=== PATIENT | male | born 1970 | race Caucasian/White ===

== ENCOUNTER 2017-11-12 06:36 | Emergency (ER) | payer BC ==
[2017-11-12 06:51] VITALS: BP 131/88
[2017-11-12] MEDS ORDERED: Ketorolac 60 MG/2 ML SDV IM ONE (07:20)
--- NOTE | 2017-11-12 07:25 | EDM.PDOC ---
ED HPI GENERAL MEDICAL PROBLEM - General Chief Complaint: Upper Extremity Injury/Pain Stated Complaint: EXCRUICIATING PAIN IN RIGHT SHOULDER Time Seen by Provider: 11/12/17 07:13 - History of Present Illness INITIAL COMMENTS - FREE TEXT/NARRATIVE: HISTORY AND PHYSICAL: History of present illness: The patient is a 47-year-old male who presents with complaints to his right arm that started about 4 AM and there is pain with movement and engagement of the arm. The patient says for the last one month he has had migrating discomfort sometimes in his left shoulder sometimes in his right shoulder sometimes in his knee and now it's in his right upper extremity. The patient works in the [employer] and does a lot of lifting and pulling and moving and has a very strenuous job. Patient denies any direct trauma to the area and has no bony tenderness in the arm. He points mostly to the biceps area and says that when he bends at the elbow or rotates his forearm the pain is worse. He has no weakness in the arm or sensory changes. He has no proximal shoulder discomfort today no neck pain no back pain no chest pain fevers chills nausea vomiting or shortness of breath. He says he has diclofenac that he has used in the past for shoulder injury and he did take one tablet for this discomfort. Review of systems: As per history of present illness and below otherwise all systems reviewed and negative. Past medical history: As per history of present illness and as reviewed below otherwise noncontributory. Surgical history: As per history of present illness and as reviewed below otherwise noncontributory. Social history: No reported history of drug or alcohol abuse. Family history: As per history of present illness and as reviewed below otherwise noncontributory. Physical exam: General: Well developed well-nourished man who is nontoxic and vital signs have been reviewed by me HEENT: Atraumatic, normocephalic, negative for conjunctival pallor or scleral icterus, mucous membranes moist, throat clear, neck supple, nontender, trachea midline. Lungs: Clear to auscultation, breath sounds equal bilaterally, chest nontender. Heart: S1S2, regular rate and rhythm no overt murmurs Abdomen: Soft, nondistended, nontender. NABS Pelvis: Deferred Genitourinary: Deferred. Rectal: Deferred. Extremities: Atraumatic, negative for cords or calf pain. Neurovascular unremarkable. The patient has full range of motion of all extremities and has no bony tenderness from the shoulder to the fingertips on the right upper extremity. There is no swelling of the right upper extremity and pulses are strong and intact distally and there is no axillary adenopathy. There is good cap refill in the right hand. There is discomfort with palpation of the biceps tendon and engagement of the biceps on passive range of motion as well as active range of motion and also discomfort with rotation of the forearm from the supine to prone position. The patient says that this replicates the pain that he is experiencing. There are no neurosensory changes distally there is no weakness just discomfort with this active range of motion. Neuro: Awake, alert, oriented. Cranial nerves II through XII unremarkable. Cerebellum unremarkable. Motor and sensory unremarkable throughout. Exam nonfocal. Diagnostics: [] Therapeutics: Toradol sling Impression: Right upper extremity musculoskeletal pain Definitive disposition and diagnosis as appropriate pending reevaluation and review of above. Right Arm Pain Score (Numeric/FACES): 9 - Related Data Allergies Allergy/AdvReac Type Severity Reaction Status Date / Time No Known Allergies Allergy Verified 01/13/16 15:42 Home Meds: Home Meds Diclofenac Potassium [Zipsor] 50 mg PO TID PRN 11/12/17 [History] Past Medical History - Past Health History Medical/Surgical History: Denies Medical/Surgical History Musculoskeletal History: Reports: Other (See Below) Other Musculoskeletal History: back strain - Infectious Disease History Infectious Disease History: Reports: Chicken Pox - Past Surgical History Male Surgical History: Reports: Vasectomy Social & Family History - Family History Family Medical History: Noncontributory - Tobacco Use Smoking Status *Q: Current Every Day Smoker Years of Tobacco use: 8 Packs/Tins Daily: 1 - Caffeine Use Caffeine Use: Reports: Coffee Review of Systems - Review of Systems Review Of Systems: ROS reveals no pertinent complaints other than HPI. ED EXAM, GENERAL - Physical Exam Exam: See Below (See dictation) Course - Vital Signs Last Recorded V/S: Last Vital Signs Temp 36.6 C 11/12/17 06:48 Pulse 87 11/12/17 06:48 Resp 18 11/12/17 06:48 BP 131/88 11/12/17 06:48 Pulse Ox 97 11/12/17 06:48 - Orders/Labs/Meds Orders: Active Orders 24 hr Category Date Time Status Ketorolac [Toradol] Med 11/12/17 07:20 Once 60 mg IM ONETIME ONE DME for Discharge [COMM] Stat Oth 11/12/17 07:20 Ordered Departure - Departure Time of Disposition: 07:24 Disposition: Home, Self-Care 01 Condition: Good Clinical Impression: Right upper limb pain - Discharge Information Referrals: PCP,None [Primary Care Provider] - Additional Instructions: The following information is given to patients seen in the emergency department who are being discharged to home. This information is to outline your options for follow-up care. We provide all patients seen in our emergency department with a follow-up referral. The need for follow-up, as well as the timing and circumstances, are variable depending upon the specifics of your emergency department visit. If you don't have a primary care physician on staff, we will provide you with a referral. We always advise you to contact your personal physician following an emergency department visit to inform them of the circumstance of the visit and for follow-up with them and/or the need for any referrals to a consulting specialist. The emergency department will also refer you to a specialist when appropriate. This referral assures that you have the opportunity for followup care with a specialist. All of these measure are taken in an effort to provide you with optimal care, which includes your followup. Under all circumstances we always encourage you to contact your private physician who remains a resource for coordinating your care. When calling for followup care, please make the office aware that this follow-up is from your recent emergency room visit. If for any reason you are refused follow-up, please contact the [facility] emergency department at and ask to speak to the emergency department charge nurse. [facility] Primary care- Internal Medicine and Family [facility] [address] [place] [id number] [facility] Specialty Care--Orthopedic clinic Professional Building [address] [place] [phone] Please use ice to areas of discomfort for the next 24 hours as we discussed to reduce inflammation and use the diclofenac that you have at home. You may also add a muscle relaxer as prescribed but take this only when you're at home. Please call and schedule a follow-up appointment as we discussed for further care and evaluation and try to slow down with all activities at home and at work to try to reduce stress on this arm. Return to ER as needed and as discussed - My Orders Last 24 Hours: My Active Orders 11/12/17 07:20 Ketorolac [Toradol] 60 mg IM ONETIME ONE DME for Discharge [COMM] Stat - Assessment/Plan Last 24 Hours: My Active Orders 11/12/17 07:20 Ketorolac [Toradol] 60 mg IM ONETIME ONE DME for Discharge [COMM] Stat
== END 2017-11-12 08:07 | disposition home or self-care (01) ==
LOC: MW.ED 06:36
DX: M79.621 Pain in right upper arm (principal); F17.210 Nicotine dependence, cigarettes, uncomplicated
CPT/HCPCS: 96372; 99283; J1885; 99282

== ENCOUNTER 2020-04-12 04:40 | Emergency (ER) | payer BC ==
[2020-04-12] MEDS ORDERED: Diphtheria,Pertussis(Acell),Tetanus Vaccine 0.5 ML Syringe IM ONE (04:47)
[2020-04-12] MEDS ORDERED: Sodium Chloride 0.9% 2.5 ML Syringe FLUSH PRN (04:47)
[2020-04-12] MEDS ORDERED: Sodium Chloride 0.9% 10 ML Syringe FLUSH PRN (04:47)
[2020-04-12] MEDS ORDERED: Sodium Chloride 0.9% 1,000 ML IV ONE (04:48)
[2020-04-12] MEDS ORDERED: ceFAZolin 1 GM in Premix Bag 1 BAG IV ONE (04:48)
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
[2020-04-12] MEDS ORDERED: Lidocaine 1% 10 ML MDV INJECT ONE (04:57)
[2020-04-12 05:22] LABS: BLOOD UREA NITROGEN,BUN 8 mg/dL (7.0-18.0); CARBON DIOXIDE,CO2 20.5 mmol/L (21.0-32.0); CHLORIDE,CL 99 mmol/L (98-107); GLUCOSE RANDOM 139 mg/dL (74-106); POTASSIUM,K 3.7 mmol/L (3.5-5.1); SODIUM,NA 135 mmol/L (136-148)
--- NOTE | 2020-04-12 07:00 | US ---
INDICATION: Trauma, right groin laceration. TECHNIQUE: Ultrasound right lower extremity arterial and venous flow of the common femoral and superficial vessels. Compression venous exam was performed using morales-scale, color Doppler, and spectral Doppler imaging. COMPARISON: None. FINDINGS: The right common femoral and superficial femoral arteries and veins are patent with normal blood flow and spectral waveforms. No sign of vascular injury. No hematoma or pseudoaneurysm. IMPRESSION: No sign of vascular injury in the right common femoral and superficial femoral arteries and veins. Dictated by Bi Tejeda MD @ Apr 12 2020 6:56AM Signed by Dr. Bi Tejeda @ Apr 12 2020 6:59AM
[2020-04-12 10:57] VITALS: BP 148/83; PULSE 93
== END 2020-04-12 07:32 ==
LOC: MW.ED 04:40
DX: S31.113A Laceration without foreign body of abdominal wall, right lower quadrant without penetration into peritoneal cavity, initial encounter (principal); Z23 Encounter for immunization; W33.01XA Accidental discharge of shotgun, initial encounter
CPT/HCPCS: 12032; 36415; 80053; 85025; 90471; 93926; 96365; 99284; J0690; J2001; J7030; 12002; 99283